=== PATIENT | female | born 1995 | race Caucasian/White ===

== ENCOUNTER 2017-08-05 17:04 | Inpatient (IN) | payer BC ==
[~2017-08-05] VITALS: Ht 162.6 cm; Wt 71.2 kg
[2017-08-05] VITALS (220 sets, daily range): BP systolic 108–128; BP diastolic 67–70; PULSE 85–89; TEMP 97.9–98.1; O2SAT 98–100
[~2017-08-05 17:04] MED LIST: IRON325 M1 PO; MOTRIN 600600 MG/TAB PO; PERCOCET 325 MG1 TA2 PO; PRENATAL VITAMI1 TAB PO; PROCARDIA XL 3030 MG PO; PROCARDIA XL 6060 MG PO
[2017-08-05 17:56] LABS: BASO % 0.2 % (0.0-2.0); EOS # 0.1 (0.0-0.7); GRAN # 3.6 (1.4-6.5); LYMPH # 1.9 (1.2-3.4); LYMPH % 31.4 % (20.0-51.0); MEAN CELL VOLUME 58 fl (80.0-100.0); MEAN CORPUSCULAR HGB CONC 21 g/dl (33.0-37.0); MONO # 0.4 (0.1-0.6); MONO % 6.1 % (1.7-9.3); PLATELET COUNT 448 K/mm3 (130-400); RED BLOOD COUNT 2.09 M/mm3 (4.10-5.30); WHITE BLOOD COUNT 6.1 K/mm3 (4.8-10.8)
[2017-08-05 17:58] LABS: HEMATOCRIT 12.2 % (37.0-47.0); HEMOGLOBIN 2.6 g/dl (12.5-16.0); MEAN CORPUSCULAR HEMOGLOBIN 12 pg (27.0-31.0)
[2017-08-05 17:59] LABS: LACTATE DEHYDROGENASE 504 U/L (313-618)
[2017-08-05 18:01] LABS: ADJUSTED CALCIUM 8.8 mg/dL (8.4-10.2); ALBUMIN 3.9 gm/dL (3.5-5.0); BILIRUBIN,TOTAL 0.9 mg/dL (0.0-1.0); CALCIUM 8.7 mg/dL (8.4-10.2); CREATININE, serum 0.62 mg/dL (0.52-1.25); TOTAL PROTEIN 6.4 gm/dL (6.4-8.2)
[2017-08-05 18:09] LABS: TOTAL IRON BINDING CAPACITY 421 ug/dL (265-497)
[2017-08-05 18:37] LABS: FERRITIN 1 ng/mL (6-137)
[2017-08-05 19:32] LABS: PH 6 (5-8); SQUAMOUS EPITHELIAL 0-2 /hpf; URINE APPEARANCE Clear; URINE BACTERIA None Seen /hpf; URINE BILIRUBIN Negative (NEGATIVE); URINE BLOOD Negative (NEGATIVE); URINE COLOR Yellow; URINE GLUCOSE Negative (NEGATIVE); URINE KETONE Negative (NEGATIVE); URINE RBC 0-2 /hpf
[2017-08-05 21:24] LABS: INR 1.1 (0.8-3.0); PROTHROMBIN TIME 12.1 SECONDS (9.7-12.8)
[2017-08-05 22:38] LABS: RETIC % 4.1 % (0.5-3.52)
[2017-08-06] VITALS (779 sets, daily range): BP systolic 105–121; BP diastolic 60–86; PULSE 60–90; TEMP 97.5–99.2; O2SAT 86–100
[2017-08-06 02:55] LABS: HEMATOCRIT 19.4 % (37.0-47.0); HEMOGLOBIN 5.3 g/dl (12.5-16.0)
[2017-08-06 10:02] LABS: CALCIUM 8.3 mg/dL (8.4-10.2); CREATININE, serum 0.52 mg/dL (0.52-1.25); POTASSIUM 4.1 mmol/L (3.4-5.0)
[2017-08-06 10:06] LABS: MEAN CORPUSCULAR HGB CONC 29 g/dl (33.0-37.0); PLATELET COUNT 353 K/mm3 (130-400); RED BLOOD COUNT 3.94 M/mm3 (4.10-5.30); REDCELL DISTRIBUTION WIDTH-CV 29.5 % (11.5-14.5)
[2017-08-06 10:07] LABS: HEMATOCRIT 28.7 % (37.0-47.0); HEMOGLOBIN 8.2 g/dl (12.5-16.0); MEAN CELL VOLUME 73 fl (80.0-100.0); MEAN CORPUSCULAR HEMOGLOBIN 21 pg (27.0-31.0)
[2017-08-06] MEDS ORDERED: FERROUS GL325 MG/TAB PO (11:58)
== END 2017-08-06 13:39 | disposition home or self-care (01) | DRG 812 ==
LOC: COL.ER 17:04 → ICU 18:36
PROVIDERS: Emergency Medicine; Internal Medicine
DX: D50.9 Iron deficiency anemia, unspecified (principal); N39.0 Urinary tract infection, site not specified; R07.9 Chest pain, unspecified; D47.3 Essential (hemorrhagic) thrombocythemia; Z90.49 Acquired absence of other specified parts of digestive tract
CPT/HCPCS: 99223-AI; 99239; J0696; J2916; P9016

== ENCOUNTER 2018-01-05 21:29 | Emergency (ER) | payer BC ==
[~2018-01-05] VITALS: Ht 160 cm; Wt 75.9 kg
[~2018-01-05 21:29] MED LIST changes: +FERROUS GL325 MG/TAB PO
[2018-01-05 21:35] VITALS: TEMP 98
[2018-01-05] MEDS ORDERED: FERROUS GL325 MG/TAB (21:40)
[2018-01-05] MEDS ORDERED: PRENATAL-U1 CAP PO (21:40)
[2018-01-05 22:29] LABS: COLLECTION METHOD CLEAN CATCH
[2018-01-05 22:34] LABS: PH 6 (5-8); URINE APPEARANCE Clear; URINE BILIRUBIN Negative (NEGATIVE); URINE BLOOD Negative (NEGATIVE); URINE COLOR Yellow; URINE GLUCOSE Negative (NEGATIVE); URINE KETONE Negative (NEGATIVE); URINE LEUKOCYTE ESTERASE Negative (NEGATIVE); URINE NITRATE Negative (NEGATIVE); URINE PROTEIN(semi-quant) Negative (NEGATIVE); URINE UROBILINOGEN Negative (NEGATIVE)
[2018-01-05 22:41] LABS: URINE BACTERIA Rare /hpf; URINE RBC 0-2 /hpf
[2018-01-05 22:46] LABS: BASO # 0.1 (0.0-0.2); BASO % 0.8 % (0.0-2.0); EOS # 0.1 (0.0-0.7); EOS % 1.9 % (0-4.0); GRAN % 69.2 % (42.2-75.2); LYMPH # 1.6 (1.2-3.4); LYMPH % 21.9 % (20.0-51.0); MEAN CELL VOLUME 68 fl (80.0-100.0); MEAN CORPUSCULAR HGB CONC 28 g/dl (33.0-37.0); MONO # 0.4 (0.1-0.6); MONO % 5.9 % (1.7-9.3); PLATELET COUNT 216 K/mm3 (130-400); RED BLOOD COUNT 4.95 M/mm3 (4.10-5.30); REDCELL DISTRIBUTION WIDTH-CV 19.7 % (11.5-14.5)
[2018-01-05 22:56] LABS: HEMATOCRIT 33.8 % (37.0-47.0); HEMOGLOBIN 9.5 g/dl (12.5-16.0)
[2018-01-05 22:58] LABS: ALANINE AMINOTRANSFERASE 25 U/L (9-52); ALBUMIN 4.1 gm/dL (3.5-5.0); ALKALINE PHOSPHATASE 69 U/L (50-136); ANION GAP 6 mmol/L (7-16); AST,SGOT 15 U/L (15-37); BILIRUBIN,TOTAL 0.3 mg/dL (0.0-1.0); BLOOD UREA NITROGEN 8 mg/dL (7-17); CALCIUM 8.9 mg/dL (8.4-10.2); CARBON DIOXIDE 23 mmol/L (22-30); CHLORIDE 104 mmol/L (98-107); CREATININE, serum 0.53 mg/dL (0.52-1.25); GLUCOSE 93 mg/dL (74-106); LIPASE 57 U/L (23-300); MEAN CORPUSCULAR HEMOGLOBIN 19 pg (27.0-31.0); POTASSIUM 3.8 mmol/L (3.4-5.0); SODIUM 134 mmol/L (137-145); TOTAL PROTEIN 6.9 gm/dL (6.4-8.2)
[2018-01-05 23:00] LABS: C-REACTIVE PROTEIN < 0.5 mg/dL (0.0-0.9)
[2018-01-06 00:02] VITALS: BP 142/86; PULSE 92
== END 2018-01-06 00:02 | disposition home or self-care (01) ==
LOC: COL.ER 21:29
PROVIDERS: Family Medicine
DX: O26.892 Other specified pregnancy related conditions, second trimester (principal); Z3A.12 12 weeks gestation of pregnancy
CPT/HCPCS: J7030

== ENCOUNTER 2018-04-24 08:52 | Outpatient (CLI) | payer BC ==
[~2018-04-24] VITALS: Ht 165.1 cm; Wt 85.9 kg
[2018-04-24] VITALS (10 sets, daily range): BP systolic 140–174; BP diastolic 82–107; PULSE 68–82; TEMP 98.3
[~2018-04-24 08:52] MED LIST changes: +FERROUS GL325 MG/TAB; +FOLIC ACID 11 MG/TA1 PO; +PRENATAL-U1 CAP PO
[2018-04-24] MEDS ORDERED: VTAMINC250TA PO (09:34)
[2018-04-24] MEDS ORDERED: VITAMIN D 400400 IU PO (09:34)
[2018-04-24 09:38] LABS: BASO # 0.1 (0.0-0.2); BASO % 0.8 % (0.0-2.0); EOS # 0.2 (0.0-0.7); GRAN # 3.6 (1.4-6.5); GRAN % 59.6 % (42.2-75.2); HEMOGLOBIN 12.3 g/dl (12.5-16.0); LYMPH # 1.7 (1.2-3.4); LYMPH % 27.8 % (20.0-51.0); MEAN CELL VOLUME 82 fl (80.0-100.0); MEAN CORPUSCULAR HEMOGLOBIN 28 pg (27.0-31.0); MEAN CORPUSCULAR HGB CONC 35 g/dl (33.0-37.0); MEAN PLATELET VOLUME 11.4 fl (7.4-10.4); MONO # 0.5 (0.1-0.6); MONO % 8.5 % (1.7-9.3); PLATELET COUNT 193 K/mm3 (130-400); RED BLOOD COUNT 4.33 M/mm3 (4.10-5.30); REDCELL DISTRIBUTION WIDTH-CV 20.5 % (11.5-14.5)
[2018-04-24 09:43] LABS: HEMATOCRIT 35.5 % (37.0-47.0)
[2018-04-24 09:48] LABS: COLLECTION METHOD CLEAN CATCH
[2018-04-24 09:50] LABS: ALBUMIN 2.8 gm/dL (3.5-5.0); BILIRUBIN,TOTAL 0.2 mg/dL (0.0-1.0); CALCIUM 8.2 mg/dL (8.4-10.2); CREATININE, serum 0.53 mg/dL (0.52-1.25); POTASSIUM 4.2 mmol/L (3.4-5.0); TOTAL PROTEIN 5.7 gm/dL (6.4-8.2)
[2018-04-24 09:51] LABS: INR 0.9 (0.8-3.0); PROTHROMBIN TIME 9.7 SECONDS (9.7-12.8)
[2018-04-24 09:54] LABS: PARTIAL THROMBOPLASTIN TIME 33.6 SECONDS (26.0-37.0)
[2018-04-24 10:22] LABS: MUCOUS Present /lpf; PH 5 (5-8); URINE APPEARANCE Cloudy; URINE BACTERIA Rare /hpf; URINE BILIRUBIN Negative (NEGATIVE); URINE BLOOD Negative (NEGATIVE); URINE COLOR Yellow; URINE GLUCOSE Negative (NEGATIVE); URINE KETONE Negative (NEGATIVE); URINE LEUKOCYTE ESTERASE 3+ (NEGATIVE); URINE NITRATE Negative (NEGATIVE); URINE PROTEIN(semi-quant) 3+ (NEGATIVE)
[2018-04-24] MEDS ORDERED: ASPIRIN 81M81 MG/TA2 PO (11:06)
== END 2018-04-24 13:15 | disposition short-term general hospital (02) ==
LOC: LDRO 08:52 → COL.ER 08:52 → EDSTATUS 11:41 → LDR 11:43 → LDRO 13:15
PROVIDERS: Emergency Medicine
DX: O99.412 Diseases of the circulatory system complicating pregnancy, second trimester (principal); R03.0 Elevated blood-pressure reading, without diagnosis of hypertension; Z3A.27 27 weeks gestation of pregnancy
CPT/HCPCS: OP; J0360; J0702; J7120

== ENCOUNTER 2019-07-08 15:41 | Emergency (ER) | payer BC, OTHER ==
[~2019-07-08] VITALS: Ht 162.6 cm; Wt 96.8 kg
[~2019-07-08 15:41] MED LIST changes: +ASPIRIN 81M81 MG/TA2 PO; +VITAMIN D 400400 IU PO; +VTAMINC250TA PO
[2019-07-08 15:51] VITALS: TEMP 97.9
[2019-07-08 16:23] LABS: BASO # 0.1 (0.0-0.2); BASO % 1.1 % (0.0-2.0); EOS # 0.2 (0.0-0.7); GRAN # 4.8 (1.4-6.5); GRAN % 65.7 % (42.2-75.2); HEMATOCRIT 31.8 % (37.0-47.0); HEMOGLOBIN 9.3 g/dl (12.5-16.0); LYMPH # 1.7 (1.2-3.4); MEAN CELL VOLUME 74 fl (80.0-100.0); MEAN CORPUSCULAR HEMOGLOBIN 22 pg (27.0-31.0); MEAN CORPUSCULAR HGB CONC 29 g/dl (33.0-37.0); MEAN PLATELET VOLUME 11.1 fl (7.4-10.4); MONO # 0.5 (0.1-0.6); MONO % 7.1 % (1.7-9.3); PLATELET COUNT 251 K/mm3 (130-400); RED BLOOD COUNT 4.31 M/mm3 (4.10-5.30); REDCELL DISTRIBUTION WIDTH-CV 19.3 % (11.5-14.5)
[2019-07-08 16:33] LABS: COLLECTION METHOD CLEAN CATCH
[2019-07-08 16:46] LABS: MUCOUS Present /lpf; PH 5 (5-8); SQUAMOUS EPITHELIAL 0-2 /hpf; URINE APPEARANCE Clear; URINE BACTERIA Rare /hpf; URINE BILIRUBIN Negative (NEGATIVE); URINE BLOOD 3+ (NEGATIVE); URINE COLOR Yellow; URINE GLUCOSE Negative (NEGATIVE); URINE KETONE Negative (NEGATIVE); URINE LEUKOCYTE ESTERASE Negative (NEGATIVE); URINE NITRATE Negative (NEGATIVE); URINE PROTEIN(semi-quant) 1+ (NEGATIVE); URINE RBC >50 /hpf
[2019-07-08 16:46] LABS: BILIRUBIN,TOTAL 0.4 mg/dL (0.0-1.0); CALCIUM 8.5 mg/dL (8.4-10.2); CREATININE, serum 0.5 (0.52-1.25); POTASSIUM 4.1 mmol/L (3.4-5.0); TOTAL PROTEIN 6.4 gm/dL (6.4-8.2)
[2019-07-08 17:25] VITALS: BP 124/77; PULSE 86
== END 2019-07-08 17:28 | disposition home or self-care (01) ==
LOC: COL.ER 15:41
PROVIDERS: Nurse Practitioner
DX: R53.83 Other fatigue (principal); F32.9 Major depressive disorder, single episode, unspecified; Z79.82 Long term (current) use of aspirin

== ENCOUNTER 2021-01-05 11:22 | Outpatient (CLI) | payer OTHER ==
--- NOTE | 2021-01-05 11:30 | NUR ---
Pt arrives on unit ambulatory. Per pt hx G3L2 at 31 weeks gestation, recieves care at [facility] with hx of c/s x2 for pre-ecclampsia with severe features. States contant right sided pain 5/10 x24 hours with occasional "floating vision" 3x per week. Tylenol taken last night for pain. Intermittent headaches x 1 week. No swelling noted. Denies ctx, LOF, vaginal bleeding, and reports GFM. Changed into clean gown. EFM and toco applied. VS 130s/90s. Pt will see MFM on 01/11/21. Requested records from [facility]. Dr. Prakash notified. 24 hour urine performed 2 weeks ago. Insignificant per pt. Reviewed hx. Orders for CBC, CMP. Call with results. Pt updated on POC. No questions or concerns at this time.
[2021-01-05 12:22] LABS: ALBUMIN 3.4 gm/dL (3.5-5.0); BILIRUBIN,TOTAL 0.4 mg/dL (0.0-1.0); CALCIUM 8.6 mg/dL (8.4-10.2); CREATININE, serum 0.48 (0.52-1.25); POTASSIUM 3.9 mmol/L (3.4-5.0); TOTAL PROTEIN 6.2 gm/dL (6.4-8.2)
[2021-01-05] MEDS ORDERED: ZOLOFT 100MG100 MG PO (12:23)
[2021-01-05 12:38] LABS: BASO # 0.1 (0.0-0.2); BASO % 0.7 % (0.0-2.0); EOS # 0.2 (0.0-0.7); EOS % 1.8 % (0-4.0); GRAN # 6.2 (1.4-6.5); GRAN % 75.8 % (42.2-75.2); HEMOGLOBIN 10.3 g/dl (12.5-16.0); LYMPH # 1.3 (1.2-3.4); LYMPH % 15.6 % (20.0-51.0); MEAN CELL VOLUME 78 fl (80.0-100.0); MEAN CORPUSCULAR HEMOGLOBIN 23 pg (27.0-31.0); MEAN CORPUSCULAR HGB CONC 29 g/dl (33.0-37.0); MONO # 0.5 (0.1-0.6); MONO % 5.6 % (1.7-9.3); PLATELET COUNT 200 K/mm3 (130-400); RED BLOOD COUNT 4.51 M/mm3 (4.10-5.30); REDCELL DISTRIBUTION WIDTH-CV 19.5 % (11.5-14.5)
[2021-01-05 12:39] LABS: HEMATOCRIT 35.1 % (37.0-47.0)
[2021-01-05 12:41] VITALS: BP 122/1; PULSE 96; TEMP 98.5
== END 2021-01-05 12:45 | disposition home or self-care (01) ==
LOC: LDRO 11:22
PROVIDERS: Obstetrics & Gynecology
DX: O26.893 Other specified pregnancy related conditions, third trimester (principal); R10.9 Unspecified abdominal pain; Z3A.31 31 weeks gestation of pregnancy; Z87.59 Personal history of other complications of pregnancy, childbirth and the puerperium

== ENCOUNTER 2021-09-30 19:41 | Emergency (ER) | payer OTHER ==
[~2021-09-30] VITALS: Ht 165.1 cm; Wt 90.9 kg
[~2021-09-30 19:41] MED LIST changes: +ZOLOFT 100MG100 MG PO
[2021-09-30 19:50] VITALS: TEMP 97.2
[2021-09-30 22:57] LABS: BASO % 0.6 % (0.0-2.0); EOS % 0.2 % (0-4.0); GRAN # 3.8 K/mm3 (1.4-6.5); GRAN % 78.4 % (42.2-75.2); LYMPH # 0.6 K/mm3 (1.2-3.4); LYMPH % 12.8 % (20.0-51.0); MEAN CELL VOLUME 63 fl (80.0-100.0); MEAN CORPUSCULAR HGB CONC 28 g/dl (33.0-37.0); MONO # 0.4 K/mm3 (0.1-0.6); MONO % 7.4 % (1.7-9.3); PLATELET COUNT 157 K/mm3 (130-400); RED BLOOD COUNT 4.61 M/mm3 (4.10-5.30); REDCELL DISTRIBUTION WIDTH-CV 17.4 % (11.5-14.5)
[2021-09-30 22:59] LABS: HEMATOCRIT 28.8 % (37.0-47.0); HEMOGLOBIN 8.1 g/dl (12.5-16.0); MEAN CORPUSCULAR HEMOGLOBIN 18 pg (27.0-31.0)
[2021-09-30 23:16] LABS: ALBUMIN 3.5 gm/dL (3.5-5.0); BILIRUBIN,TOTAL 0.7 mg/dL (0.2-1.2); CALCIUM 8.2 mg/dL (8.4-10.2); CREATININE, serum 0.72 mg/dL (0.57-1.11); POTASSIUM 3.1 mmol/L (3.5-4.5); TOTAL PROTEIN 6.5 gm/dL (6.2-8.1)
[2021-10-01 00:26] VITALS: BP 125/81; PULSE 109
== END 2021-10-01 00:26 | disposition home or self-care (01) ==
LOC: COL.ER 19:41
PROVIDERS: Student in an Organized Health Care Education/Training Program
DX: D50.9 Iron deficiency anemia, unspecified (principal)